=== PATIENT | female | born 1980 | race Caucasian/White ===

== ENCOUNTER → 2016-11-27 | Outpatient (CLI) | payer MEDICAID | LOC: LAB 16:14 | DX: R53.83 Other fatigue (principal) ==

== ENCOUNTER → 2016-11-29 | Outpatient (CLI) | payer MEDICAID ==
--- NOTE | 2016-11-29 15:11 | RADIOLOGY REPORT PS360 ---
FOOT-LT-3 VIEWS HISTORY: LT FOOT PAIN ORDERING PHYSICIAN: ELPIDIO GARCIA PATIENT AGE: 36 years COMPARISON: None FINDINGS: No fracture or dislocation. No lytic or blastic change. There is normal mineralization.. The joint spaces are well-preserved. No significant degenerative/arthritic changes. No erosive changes evident. IMPRESSION: Negative left foot, no acute finding
== END ==
LOC: RAD 14:12
DX: M79.672 Pain in left foot (principal)